=== PATIENT | female | born 1955 | race Two or more races ===

== ENCOUNTER 2019-10-11 12:26 | Emergency (ER) | payer OTHER, MEDICARE ==
[~2019-10-11] VITALS: Ht 170.2 cm; Wt 95.3 kg
[2019-10-11 12:36] VITALS: BP 139/65
[2019-10-11] MEDS ORDERED: oxyCODONE/APAP (5/325 MG) 1 UDTAB TABLET ONE (13:24)
[2019-10-11] MEDS ORDERED: IBUPROFEN 400 MG TABLET ONE (13:25)
[2019-10-11] MEDS: IBUPROFEN 400 MG TABLET PO ONE (13:30)
[2019-10-11] MEDS: oxyCODONE/APAP (5/325 MG) 1 UDTAB TABLET PO ONE (13:30)
--- NOTE | 2019-10-11 13:37 | NUR ---
Patient discharged to home in stable condition. Written and verbal after care instructions given. Patient verbalizes understanding of instruction.
== END 2019-10-11 13:36 | disposition home or self-care (01) ==
LOC: ER 12:27
DX: M79.602 Pain in left arm (principal); M25.561 Pain in right knee; I10 Essential (primary) hypertension; E11.9 Type 2 diabetes mellitus without complications; E78.00 Pure hypercholesterolemia, unspecified; Z90.13 Acquired absence of bilateral breasts and nipples; Z88.0 Allergy status to penicillin; V49.49XA Driver injured in collision with other motor vehicles in traffic accident, initial encounter; Y93.89 Activity, other specified; Y92.488 Other paved roadways as the place of occurrence of the external cause; Y99.8 Other external cause status